=== PATIENT | male | born 1985 | race Caucasian/White ===

== ENCOUNTER 2023-10-19 08:14 | Emergency (ER) | payer OTHER ==
[~2023-10-19] VITALS: Ht 185.4 cm; Wt 88.2 kg
[2023-10-19 08:16] VITALS: TEMP 97.9
[2023-10-19] MEDS ORDERED: NS 1,000 ML IV ONE (08:30)
[2023-10-19 08:32] LABS: COLLECTION METHOD CLEAN CATCH
[2023-10-19 08:40] LABS: PH 5.5 (5.0-8.5); URINE APPEARANCE CLEAR (CLEAR/HAZY); URINE BLOOD 3+ (NEGATIVE); URINE COLOR YELLOW (YELLOW); URINE GLUCOSE NEGATIVE (NEGATIVE); URINE KETONE NEGATIVE (NEGATIVE); URINE NITRATE NEGATIVE (NEGATIVE); URINE PROTEIN(semi-quant) NEGATIVE (NEGATIVE); URINE UROBILINOGEN 0.2 E.U/dL (0.2-1.0)
[2023-10-19] MEDS ORDERED: fentaNYL 50 MCG/ML 2 ML VIAL IV ONE (08:45)
[2023-10-19] MEDS ORDERED: Ketorolac 30 MG/ML VIAL IV ONE (08:45)
[2023-10-19] MEDS ORDERED: Ondansetron 4 MG/2 ML VIAL IV ONE (08:45)
[2023-10-19 08:55] LABS: BASO # 0.1 K/mm3 (0.0-0.2); BASO % 0.7 % (0.0-2.0); EOS # 0.1 K/mm3 (0.0-0.7); EOS % 1.7 % (0.0-4.0); GRAN # 3.5 K/mm3 (1.4-6.5); GRAN % 49.5 % (42.2-75.2); HEMATOCRIT 41.8 % (42.0-52.0); HEMOGLOBIN 14.5 g/dl (13.5-18.0); LYMPH # 2.9 K/mm3 (1.2-3.4); LYMPH % 41.8 % (20.0-51.0); MEAN CELL VOLUME 83 fl (80.0-100.0); MEAN CORPUSCULAR HEMOGLOBIN 29 pg (27-31); MEAN CORPUSCULAR HGB CONC 35 g/dl (33.0-37.0); MEAN PLATELET VOLUME 9.5 fl (7.4-10.4); MONO # 0.4 K/mm3 (0.1-0.6); MONO % 5.7 % (1.7-9.3); PLATELET COUNT 310 K/mm3 (130-400); RED BLOOD COUNT 5.04 M/mm3 (4.20-5.60); REDCELL DISTRIBUTION WIDTH-CV 11.7 % (11.5-14.5)
[2023-10-19 09:20] LABS: ALBUMIN 4.2 g/dL (3.5-5.0); BILIRUBIN,TOTAL 0.8 mg/dL (0.2-1.2); C-REACTIVE PROTEIN 0.04 mg/dL (0.00-0.50); CALCIUM 9.4 mg/dL (8.4-10.2); CREATININE, serum 1.05 mg/dL (0.72-1.25); POTASSIUM 3.7 mEq/L (3.5-4.5); TOTAL PROTEIN 7.1 g/dl (6.2-8.1)
[2023-10-19] MEDS ORDERED: Iohexol 300 - 100 ML VIAL IV ONE (09:42)
[2023-10-19] MEDS ORDERED: NS 100 ML IV SCH (09:43)
[2023-10-19] MEDS ORDERED: FLOMAX 0.40.4 MG/CAP PO (11:32)
[2023-10-19] MEDS ORDERED: ZOFRAN ODT4 MG PO (11:32)
[2023-10-19] MEDS ORDERED: NORCO 325 MG-51 TAB PO (11:32)
[2023-10-19] MEDS ORDERED: CEPHALEXIN500 M1 PO (11:32)
[2023-10-19 11:45] VITALS: BP 113/74; PULSE 60
== END 2023-10-19 12:06 | disposition home or self-care (01) ==
LOC: COL.ER 08:14
PROVIDERS: Emergency Medicine
DX: N13.2 Hydronephrosis with renal and ureteral calculous obstruction (principal)
CPT/HCPCS: J1885; J2405; J3010; J7030; Q9967